=== PATIENT | male | born 1995 | race Asian ===

== ENCOUNTER 2018-03-21 00:04 | Emergency (ER) | payer BC ==
[~2018-03-21] VITALS: Ht 175.3 cm; Wt 85.3 kg
[2018-03-21 00:18] VITALS: Ht 175.3 cm; Wt 85.3 kg
[2018-03-21 02:36] VITALS: BP 129/89
== END 2018-03-21 02:36 | disposition home or self-care (01) ==
LOC: ED 00:04
DX: S43.014A Anterior dislocation of right humerus, initial encounter (principal); Z88.5 Allergy status to narcotic agent; X50.9XXA Other and unspecified overexertion or strenuous movements or postures, initial encounter; Y93.67 Activity, basketball; Y92.89 Other specified places as the place of occurrence of the external cause; Y99.8 Other external cause status
CPT/HCPCS: J1885; J2405; J3010